=== PATIENT | male | born 1945 | race Caucasian/White ===

== ENCOUNTER 2017-01-12 07:16 | Day surgery (SDC) | payer OTHER, BC ==
[2017-01-12] MEDS ORDERED: D5 LR 1000 ML 1,000 ML IV ONE (07:27)
[2017-01-12] MEDS ORDERED: DIPRIVAN VIAL 20 ML ONE (08:45)
[2017-01-12] MEDS ORDERED: APRESOLINE INJ 20 MG VIAL ONE (09:13)
[2017-01-12 09:25] VITALS: BP 112/66
== END 2017-01-12 09:29 | disposition home or self-care (01) ==
LOC: SURG1 07:16
PROVIDERS: ATTEND Internal Medicine Gastroenterology
PROC: 0DBK8ZX Excision of Ascending Colon, Via Natural or Artificial Opening Endoscopic, Diagnostic (ICD-10-PCS; principal; 2017-01-12 07:30)
PROC: 0DJD8ZZ Inspection of Lower Intestinal Tract, Via Natural or Artificial Opening Endoscopic (ICD-10-PCS; principal; 2017-01-12 07:30)
DX: K57.30 Diverticulosis of large intestine without perforation or abscess without bleeding (principal); K63.5 Polyp of colon; K64.0 First degree hemorrhoids; Z86.010 Personal history of colon polyps; D12.2 Benign neoplasm of ascending colon
CPT/HCPCS: 99100; A4217; J0360; J3490; J7120